=== PATIENT | female | born 1970 | race Asian ===

== ENCOUNTER → 2018-11-24 15:41 | Outpatient (CLI) | payer OTHER, SELFPAY ==
--- NOTE | 2018-11-24 | DI.MRI.S_ITS ---
PROCEDURE: MR ABDOME PELVIS WWO CON INDICATIONS: LOWER ABDOMINAL PAIN,CHANGE IN BOWEL HABITS TECHNIQUE: After the ingestion of oral contrast, coronal and axial HASTE, coronal 2-D FLASH in-and [id number] sequences. After the administration of contrast, coronal and axial VIBE or 2-D FLASH with fat saturation sequences acquired through the abdomen and pelvis. Optional diffusion weighted imaging and ADC may be performed. COMPARISON: [facility], MR, PELVIS W&WO CONTRAST, 04/04/2016, 16:50. FINDINGS: Image quality: Excellent. Bowel and peritoneum: The large and small bowel visualized superiorly at is normal. At the rectum and there is relative gas filling, and then at the superior rectum transition to the posterior third of the sigmoid colon adjacent to the peritoneal reflection there is mild concentric mural thickening and contrast enhancement that is higher than seen along the bowel elsewhere, with associated elevated diffusion signal best seen tracking through the same area of increased enhancement (centered on series 23 image 65 and series 29 image 73). The appearance is worrisome for either bowel inflammation or an early manifestation of mucosal neoplasm. Solid organs: Liver is normal in size and enhancement. Gallbladder appears partially contracted. Biliary system is non dilated, without findings to suggest primary sclerosing cholangitis. Pancreas is normal in morphology, without evidence for autoimmune pancreatitis. Spleen is normal in size and enhancement. No adrenal nodules. Both kidneys are normal in size and enhancement, without hydronephrosis. Nodes and vessels: No retroperitoneal or mesenteric adenopathy. Aorta and inferior vena cava are normal in size. Lung bases: No basal pleural effusions. Heart size is normal. Pelvis: No free pelvic fluid. Inferior bowel loops are normal in caliber. No inguinal hernias or adenopathy. Bones and soft tissues: No ventral hernias. Bone marrow is normal in overall signal. No findings to suggest sacroiliitis. Femoral heads demonstrate no avascular necrosis. IMPRESSION: The clinical history indicates change in bowel habits, and the current imaging shows abnormal concentric mild mucosal thickening and abnormal enhancement along the transition between the posterior third of the sigmoid colon and the rectum. As discussed there is elevated diffusion signal in this portion of the colon, located immediately above and immediately below the peritoneal reflection. Direct visualization with sigmoidoscopy is recommended. No adenopathy or distant metastatic disease is found. The findings discussed above are worrisome for representing an early manifestation of mucosal malignancy. Dictated by: Eugene Stanford M.D. on 11/24/2018 at 17:02 Approved by: Eugene Stanford M.D. on 11/24/2018 at 17:16
== END ==
PROVIDERS: PCP Family Medicine; Visit Provider Family Medicine
DX: R10.30 Lower abdominal pain, unspecified (principal); R19.4 Change in bowel habit
CPT/HCPCS: 72197

== ENCOUNTER → 2019-07-14 11:02 | Outpatient (CLI) | payer OTHER, SELFPAY ==
--- NOTE | 2019-07-14 | DI.MG.S_ITS ---
BILATERAL DIGITAL SCREENING MAMMOGRAM 3D/2D WITH CAD: 07/14/2019 CLINICAL: Routine screening. Comparison is made to exams dated: 04/09/2018 mammogram, 10/21/2016 mammogram, and 10/22/2015 mammogram - [facility]. The tissue of both breasts is heterogeneously dense. This may lower the sensitivity of mammography. Current study was also evaluated with a Computer Aided Detection (CAD) system. There are benign calcifications in both breasts. No significant masses, calcifications, or other findings are seen in either breast. There has been no significant interval change. IMPRESSION: There is no mammographic evidence of malignancy. A 1 year screening mammogram is recommended. This exam was interpreted at Station ID: [id number]. NOTE: For mammograms, a report in lay terms will be sent to the patient. Approximately 15% of breast malignancies will not be visualized mammographically. In the management of a palpable breast mass, a negative mammogram must not discourage biopsy of a clinically suspicious lesion. Electronically Signed By: Becca sparks/rodolfo:07/14/2019 17:54:47 letter sent: Normal Exam ACR BI-RADS Category 2: Benign Finding(s) 3342F
== END ==
PROVIDERS: PCP Family Medicine; Referring Provider Family Medicine; Visit Provider Family Medicine
DX: Z12.31 Encounter for screening mammogram for malignant neoplasm of breast (principal)
CPT/HCPCS: 77063; 77067

== ENCOUNTER → 2020-08-30 17:56 | Outpatient (CLI) | payer OTHER, SELFPAY ==
--- NOTE | 2020-08-30 17:57 | DI.MG.S_ITS ---
BILATERAL DIGITAL SCREENING MAMMOGRAM 3D/2D WITH CAD: 08/30/2020 CLINICAL: Routine screening. Family history of breast cancer. Comparison is made to exams dated: 07/14/2019 mammogram - [facility], 04/09/2018 mammogram, and 10/21/2016 mammogram - [facility]. The tissue of both breasts is heterogeneously dense. This may lower the sensitivity of mammography. Current study was also evaluated with a Computer Aided Detection (CAD) system. There are benign calcifications in both breasts. No significant masses, calcifications, or other findings are seen in either breast. There has been no significant interval change. IMPRESSION: BENIGN There is no mammographic evidence of malignancy. A 1 year screening mammogram is recommended. This exam was interpreted at Station ID: [id number]. NOTE: For mammograms, a report in lay terms will be sent to the patient. Approximately 15% of breast malignancies will not be visualized mammographically. In the management of a palpable breast mass, a negative mammogram must not discourage biopsy of a clinically suspicious lesion. Electronically Signed By: Hilario Moser M.D., jr/rodolfo:08/31/2020 08:14:55 letter sent: Normal Exam ACR BI-RADS Category 2: Benign Finding(s) 3342F
== END ==
PROVIDERS: PCP Family Medicine; Referring Provider Family Medicine; Visit Provider Family Medicine
DX: Z12.31 Encounter for screening mammogram for malignant neoplasm of breast (principal)
CPT/HCPCS: 77063; 77067

== ENCOUNTER → 2021-09-05 15:37 | Outpatient (CLI) | payer OTHER, SELFPAY ==
--- NOTE | 2021-09-05 | DI.MG.S_ITS ---
BILATERAL DIGITAL SCREENING MAMMOGRAM 3D/2D WITH CAD: 09/05/2021 CLINICAL: Routine screening. Family history of breast cancer. Comparison is made to exams dated: 08/30/2020 mammogram, 07/14/2019 mammogram - [facility], and 04/09/2018 mammogram - [facility]. The tissue of both breasts is heterogeneously dense. This may lower the sensitivity of mammography. Current study was also evaluated with a Computer Aided Detection (CAD) system. There are benign calcifications in both breasts. No significant masses, calcifications, or other findings are seen in either breast. There has been no significant interval change. IMPRESSION: BENIGN There is no mammographic evidence of malignancy. A 1 year screening mammogram is recommended. This exam was interpreted at Station ID: [id number]. NOTE: For mammograms, a report in lay terms will be sent to the patient. Approximately 15% of breast malignancies will not be visualized mammographically. In the management of a palpable breast mass, a negative mammogram must not discourage biopsy of a clinically suspicious lesion. Electronically Signed By: Abel thompson/rodolfo:09/05/2021 16:09:51 letter sent: Normal Exam ACR BI-RADS Category 2: Benign Finding(s) 3342F
== END ==
PROVIDERS: PCP Family Medicine; Referring Provider Family Medicine; Visit Provider Family Medicine
DX: Z12.31 Encounter for screening mammogram for malignant neoplasm of breast (principal); Z80.3 Family history of malignant neoplasm of breast
CPT/HCPCS: 77063; 77067

== ENCOUNTER → 2022-11-13 17:45 | Outpatient (CLI) | payer OTHER, SELFPAY ==
--- NOTE | 2022-11-13 | DI.MG.S_ITS ---
BILATERAL DIGITAL SCREENING MAMMOGRAM 3D/2D WITH CAD: 11/13/2022 CLINICAL: Routine screening. Family history of breast cancer. Comparison is made to exams dated: 09/05/2021 mammogram, 07/14/2019 mammogram, and 08/30/2020 mammogram - [facility]. Both breasts are heterogeneously dense, which may obscure small masses (category c / 51-75% glandular tissue). Current study was also evaluated with a Computer Aided Detection (CAD) system. There are benign calcifications in both breasts. No significant masses, calcifications, or other findings are seen in either breast. There has been no significant interval change. IMPRESSION: BENIGN There is no mammographic evidence of malignancy. A 1 year screening mammogram is recommended. Based on the Tyrer Cuzick model (a risk assessment model) the patient's lifetime risk is 11.2% and her 10 year risk is 3.1%. According to the ACR, ACS, and NCCN guidelines, an annual breast MRI exam along with mammogram is recommended if the patient's lifetime risk is 20% or greater. This exam was interpreted at Station ID: [id number]. NOTE: For mammograms, a report in lay terms will be sent to the patient. Approximately 15% of breast malignancies will not be visualized mammographically. In the management of a palpable breast mass, a negative mammogram must not discourage biopsy of a clinically suspicious lesion. Electronically Signed By: Jin [email or web address]/rodolfo:11/14/2022 09:32:43 letter sent: Normal Exam ACR BI-RADS Category 2: Benign Finding(s) 3342F
== END ==
PROVIDERS: PCP Family Medicine; Referring Provider Student in an Organized Health Care Education/Training Program; Visit Provider Student in an Organized Health Care Education/Training Program
DX: Z12.31 Encounter for screening mammogram for malignant neoplasm of breast (principal); Z80.3 Family history of malignant neoplasm of breast
CPT/HCPCS: 77063; 77067